=== PATIENT | male | born 1995 | race Asian ===

== ENCOUNTER 2017-03-18 17:34 | Emergency (ER) | payer OTHER ==
[~2017-03-18 17:34] MED LIST: COREG CR20 MG PO; CORLANOR5 MG PO; LISINOPRIL2.5 MG PO; METOPROLOL SUCC50 M2 PO; TOPROL XL50 MG PO; ZESTRIL5 MG PO
[2017-03-18 18:40] VITALS: BP 107/78
== END 2017-03-18 18:40 | disposition left against medical advice (07) ==
LOC: ED 17:34
DX: I47.1 Supraventricular tachycardia (principal); G71.0 Muscular dystrophy

== ENCOUNTER 2019-04-09 12:04 | Emergency (ER) | payer OTHER ==
[~2019-04-09] VITALS: Ht 154.9 cm; Wt 43.1 kg
[2019-04-09 12:11] VITALS: BP 100/62; Ht 154.9 cm; Wt 43.1 kg
== END 2019-04-09 12:53 | disposition home or self-care (01) ==
LOC: ED 12:04
DX: K11.21 Acute sialoadenitis (principal); Z99.3 Dependence on wheelchair; Z98.890 Other specified postprocedural states